=== PATIENT | male | born 1955 | race Caucasian/White ===

== ENCOUNTER 2017-12-21 14:49 | Observation (INO) | payer BC ==
[~2017-12-21] VITALS: Ht 182.9 cm; Wt 98.7 kg
[2017-12-21] MEDS ORDERED: NITROGLYCERIN OINT 2%, 1GM TP ONE ×2 (15:30→16:08)
[2017-12-21] MEDS ORDERED: ACETAMINOPHEN 500 MG TABLET PO ONE (15:30)
[2017-12-21] MEDS ORDERED: SODIUM CHLORIDE FLUSH 10ML SYR IVF ONE (15:30)
[2017-12-21 15:46] LABS: TROPONIN I < 0.015 ng/mL (0.000-0.045)
[2017-12-21] MEDS ORDERED: ACETAMINOPHEN 500 MG TABLET ONE (16:09)
[2017-12-21 17:01] VITALS: BP 168/103
[2017-12-21] MEDS ORDERED: ONDANSETRON ODT 4 MG PO PRN (18:00)
[2017-12-21] MEDS ORDERED: LABETALOL 5MG/ML, 20ML IVPush PRN (18:00)
[2017-12-21] MEDS ORDERED: ENALAPRILAT 1.25 MG/ML, 2ML IVPush PRN (18:00)
[2017-12-21] MEDS ORDERED: ONDANSETRON 2MG/ML, 2ML IVPush PRN (18:00)
[2017-12-21 18:32] LABS: CALCIUM 8.5 mg/dL (8.5-10.1); CHLORIDE 110 mmol/L (98-107)
[2017-12-21 18:37] LABS: ALANINE AMINOTRANSFERASE 24 U/L (12-78); ANION GAP 8 mmol/L (5-15); BILIRUBIN,TOTAL 0.5 mg/dL (0.2-1.0); CHOLESTEROL, TOTAL 204 mg/dL (140-239); CREATININE 1.31 mg/dL (0.7-1.3); TOTAL PROTEIN 7.2 g/dL (6.4-8.2); TRIGLYCERIDES 192 mg/dL (50-200); TROPONIN I < 0.015 ng/mL (0.000-0.045); VLDL CHOLESTEROL 38 mg/dL (0-25)
[2017-12-21 18:41] LABS: BASOPHILS % (AUTO) 1 % (0-1); EOSINOPHILS # (AUTO) 0.03 x10^3/uL (0-0.4); EOSINOPHILS % (AUTO) 0 % (1-7); LYMPHOCYTES # (AUTO) 3.11 x10^3/uL (1-3.4); LYMPHOCYTES % (AUTO) 32 % (22-44); MD NO; MEAN CORPUSCULAR HGB CONC 34.2 g/dL (33.2-36.2); MEAN CORPUSCULAR VOLUME 90.7 fL (81-97); MEAN PLATELET VOLUME 7.7 fL (7.4-10.4); MONOCYTES # (AUTO) 0.37 x10^3/uL (0.2-0.8); MONOCYTES % (AUTO) 4 % (2-9); NEUTROPHILS # (AUTO) 6.12 x10^3/uL (1.8-6.8); NEUTROPHILS % (AUTO) 63 % (42-75); PLATELET COUNT 317 x10^3/uL (130-400); RED BLOOD COUNT 4.88 x10^6/uL (4.38-5.82); RED CELL DISTRIBUTION WIDTH 13.7 % (9.4-14.8)
[2017-12-21 18:42] LABS: ALKALINE PHOSPHATASE 60 U/L (45-117); CHOL/HDL RATIO 6.2; FREE T4 (FREE THYROXINE) 1.07 ng/dL (0.76-1.46); HDL CHOL % 16 % (26-37); HDL CHOLESTEROL (DIRECT) 33 mg/dL (40-60); LDL CHOLESTEROL,CALCULATED 133 mg/dL (54-169)
[2017-12-21 19:15] VITALS: BP 143/81
[2017-12-21 23:40] LABS: TROPONIN I < 0.015 ng/mL (0.000-0.045)
[2017-12-22] MEDS ORDERED: ACETAMINOPHEN 325 MG TABLET ONE (00:23)
[2017-12-22] MEDS ORDERED: ACETAMINOPHEN 325 MG TABLET PO PRN (00:30)
[2017-12-22 00:34] VITALS: BP 136/79
[2017-12-22 07:50] VITALS: BP 165/92
[2017-12-22] MEDS ORDERED: SODIUM CHLORIDE 0.9% 1,000 ML IV ONE (10:06)
[2017-12-22] MEDS ORDERED: METOPROLOL TARTRATE 25 MG TABLET PO SCH (10:30)
[2017-12-22] MEDS ORDERED: AMLODIPINE 5 MG TABLET PO SCH (11:00)
[2017-12-22 11:57] VITALS: BP 169/89
[2017-12-22] MEDS ORDERED: LABETALOL 100 MG TABLET ONE (12:05)
[2017-12-22] MEDS ORDERED: LABETALOL 100 MG TABLET PO SCH ×2 (12:30→18:00)
[2017-12-22] MEDS ORDERED: FENTANYL PF 100 MCG/2ML ONE (13:22)
[2017-12-22] MEDS ORDERED: VERAPAMIL 2.5 MG/ML, 2ML ONE (13:22)
[2017-12-22] MEDS ORDERED: TICAGRELOR 90 MG TABLET ONE (13:22)
[2017-12-22] MEDS ORDERED: LIDOCAINE 2%, 20ML ONE (13:22)
[2017-12-22] MEDS ORDERED: HEPARIN 1,000 UNITS/ML, 10ML ONE (13:22)
[2017-12-22] MEDS ORDERED: MIDAZOLAM 1 MG/ML, 2ML ONE (13:22)
[2017-12-22] MEDS ORDERED: BIVALIRUDIN 250 MG ONE (13:22)
[2017-12-22 14:00] VITALS: BP 144/86
[2017-12-22] MEDS ORDERED: SODIUM CHLORIDE 0.9% 1,000 ML IV SCH (14:00)
[2017-12-22] MEDS ORDERED: AMLO5TAB2 PO (17:32)
[2017-12-22] MEDS ORDERED: ATOR20TA9 PO (17:32)
[2017-12-22] MEDS ORDERED: LABE100T3 PO (17:32)
[2017-12-22] MEDS ORDERED: ASPI-621 PO (18:48)
[2017-12-22] MEDS ORDERED: ATORVASTATIN 20 MG TABLET PO SCH (21:00)
== END 2017-12-22 20:28 | disposition home or self-care (01) ==
LOC: ED 15:22 → INTOOBSV 15:23 → EDIP 15:23 → ED 15:34 → 5SO 17:00
PROVIDERS: ADMIT Hospitalist; ATTEND Hospitalist
DX: I25.10 Atherosclerotic heart disease of native coronary artery without angina pectoris (principal); E66.9 Obesity, unspecified; I10 Essential (primary) hypertension; Z82.49 Family history of ischemic heart disease and other diseases of the circulatory system; R42 Dizziness and giddiness; E78.5 Hyperlipidemia, unspecified; R94.39 Abnormal result of other cardiovascular function study
CPT/HCPCS: 36415; 80053; 80061; 83735; 84100; 84439; 84443; 84484; 85025; 93005; 93017; 93306; 93458; 99156; 99285; C1894; G0378; J1644; J2250; J3010; J3490; Q9967; J0583